=== PATIENT | male | born 1960 | race Caucasian/White ===

== ENCOUNTER 2018-09-27 12:57 | Emergency (ER) | payer BC ==
[~2018-09-27] VITALS: Ht 172.7 cm; Wt 127.9 kg
[~2018-09-27 12:57] MED LIST: ACETAMINOPHEN-1 EAC1 PO; ASPIR 8181 MG PO; BLOOD PRESSURE MED; BYDUREON P2 MG/0.65 SUBQ; CARDIZEM CD120 MG PO; CIALIS10 MG PO; COZAAR 50 MG TA50 M1 PO; ELIQUIS5 MG PO; FENOFIBRATE160 MG PO; FENOFIBRATE40 MG PO; FLECAINIDE ACET50 M1 PO; FLEXERIL PO; FLOMAX PO; GLIPIZIDE 10 MG10 MG PO; GLUCOPHAGE500 MG PO; HYDROCODON-ACE1 EAC7; IBUPROFEN 600600 M1 PO; LIORESAL 10 MG10 MG PO; MOBIC15 MG PO; NORCO 5-325 TA1 EACH PO; OXYCODONE HCL 55 MG PO; PERCOCET 5-3251 EACH PO; PHENERGAN25 MG RE; PREDNISONE 20 M20 M1 PO; PRILOSEC 20 MG20 MG PO; ROBAXIN 750 MG750 M1 PO; TYLENOL325 MG PO; VALIUM5 MG PO; ZOFRAN 4 MG ORAL4 M1 DIS
[2018-09-27] MEDS ORDERED: METFORMIN HCL500 MG PO (13:07)
[2018-09-27] MEDS ORDERED: BYDUREON B2 MG/0.85 INJECTION (13:08)
[2018-09-27 13:19] LABS: ABSOLUTE BASOPHILS 0.1 thou/uL (0.0-0.2); ABSOLUTE EOSINOPHILS 0.5 thou/uL (0.0-0.7); ABSOLUTE LYMPHOCYTES 1.9 thou/uL (0.8-5.3); ABSOLUTE MONOCYTES 0.7 thou/uL (0.0-1.2); ABSOLUTE NEUTROPHILS 6.3 thou/uL (1.6-8.1); BASOPHILS 1.4 %; EOSINOPHILS 4.9 %; HEMATOCRIT 42.4 % (42.0-52.0); HEMOGLOBIN 14.9 gm/dL (14.0-18.0); LYMPHOCYTES 19.8 %; MCH 28.4 pg (26.0-34.0); MCHC 35.1 g/dL (28.0-37.0); MCV 80.8 fL (80.0-100.0); MONOCYTES 7.3 %; MPV 7.8 fl. (7.2-11.1); NUCLEATED RBCS 0 /100WBC; PLATELET COUNT* 332 thou/uL (150-400); POLYS 66.6 %; RBC 5.24 mil/uL (4.50-6.00); RDW-CV 14.7 % (10.5-14.5); WBC 9.4 thou/uL (4.0-11.0)
[2018-09-27 13:42] LABS: ANION GAP 8 mmol/L (7-16); BUN 19 mg/dL (7-18); CALCIUM 8.9 mg/dL (8.5-10.1); CHLORIDE 102 mmol/L (98-107); CO2 28 mmol/L (21-32); GLUCOSE 219 mg/dL (70-99); POTASSIUM 4.1 mmol/L (3.5-5.1); SODIUM 138 mmol/L (136-145)
[2018-09-27 13:52] LABS: ALBUMIN 3.9 g/dL (3.4-5.0); ALKALINE PHOSPHATASE 114 U/L (46-116); LIPASE 119 U/L (73-393); TOTAL BILIRUBIN 0.5 mg/dL (<0.1-1.0); TOTAL PROTEIN 7.1 g/dL (6.4-8.2); TROPONIN-I LEVEL <0.06 ng/mL (<0.06)
[2018-09-27 14:24] LABS: SGOT 25 U/L (15-37); SGPT 36 U/L (30-65)
[2018-09-27 15:24] LABS: URINE BILIRUBIN NEGATIVE (Negative); URINE BLOOD 2+ (Negative); URINE CLARITY CLEAR; URINE COLOR YELLOW; URINE GLUCOSE-RANDOM 1+ (Negative); URINE KETONES TRACE (Negative); URINE LEUKOCYTES-REFLEX TRACE (Negative); URINE NITRITE-REFLEX NEGATIVE (Negative); URINE PROTEIN NEGATIVE (Negative); URINE SPECIFIC GRAVITY >= 1.030 (1.005-1.030); URINE UROBILINOGEN 0.2 E.U./dl (0.2-1.0)
[2018-09-27 15:47] LABS: BACTERIA-REFLEX 1-9 Few /HPF (None Seen)
[2018-09-27 15:48] LABS: CALCIUM OXALATE 0-3 Few /LPF (None Seen); CASTS None Seen /LPF (None Seen); MUCUS None Seen strn/LPF (None Seen); SQUAMOUS >10 Many /LPF (0-3)
[2018-09-27 15:49] LABS: URINE RBC 3-10 Few /HPF (0-2)
[2018-09-27] MEDS ORDERED: BACTRIM DS TAB1 EACH PO (16:11)
[2018-09-27] MEDS ORDERED: NORCO 5-325 TA1 EACH PO (16:11)
[2018-09-27 17:00] VITALS: BP 148/72
--- NOTE | 2018-09-28 13:02 | EKG ---
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 : 1960 Requested By: Lynette Mckeon Order Number: [id number] MD: Cristhian Howard Measurements Intervals [place] Rate: 79 P: 22 NM: 181 QRS: 14 QRSD: 102 T: 54 QT: 389 QTc: 447 Interpretive Statements Sinus rhythm RSR' in V1 or V2, right VCD or RVH Compared to ECG 01/18/2017 19:04:41 no change Electronically Signed On 09-28-2018 13:02:14 DIRECTOR OF HOUSING AND ENERGY SERVICES by Cristhian Howard [email or web address] <ELECTRONICALLY SIGNED> By: Cristhian Howard MD, [facility] 09/28/18 130 140 01 Cristhian Howard MD, [facility] /EPI
== END 2018-09-27 17:04 | disposition home or self-care (01) ==
LOC: M.ERS 12:57
PROVIDERS: Physician Assistant
DX: N39.0 Urinary tract infection, site not specified (principal); E11.9 Type 2 diabetes mellitus without complications; I10 Essential (primary) hypertension; K21.9 Gastro-esophageal reflux disease without esophagitis; Z88.8 Allergy status to other drugs, medicaments and biological substances; Z87.442 Personal history of urinary calculi